=== PATIENT | female | born 1975 | race Caucasian/White ===

== ENCOUNTER 2016-09-26 14:10 | Emergency (ER) | payer MEDICARE, MEDICAID ==
[~2016-09-26 14:10] MED LIST: ABILIFY DISCMEL15 MG PO; ABILIFY MAINTE400 MG IM; ABILIFY15 M1 PO; ABILIFY15 MG; ABILIFY15 MG PO; ABILIFY20 MG; ADDERALL 10 MG10 M1 PO; ADDERALL 20 MG20 M1 PO; ADDERALL 20 MG20 MG PO; ADDERALL 30 MG30 M1 PO; ADDERALL 30 MG30 M2 PO; ADDERALL 30 MG30 MG; ADDERALL 30 MG30 MG PO; ADDERALL PO; ADDERALL XR 3030 M1 PO; ADDERALL XR 3030 MG; ADDERALL XR 3030 MG PO; ALBUTEROL HFA INH; ALBUTEROL SULF8.5 GM; ALBUTEROL SULF8.5 GM IH; ALBUTEROL17 GM INH; AMBIEN CR12.5 MG/BO PO; AMBIEN CR6.25 MG/BO; AMBIEN PO; AMBIEN10 MG PO; AMERGE2.5 MG PO; AMITRIPTYLINE H10 M1 PO; AMITRIPTYLINE H10 MG PO; ATARAX25 MG PO; ATIVAN1 M2 PO; ATIVAN2 MG PO; B COMPLEX1 EACH PO; B-COMPLEX TABL0.4 MG PO; BENTYL20 M1 PO; BENTYL20 MG PO; BENZTROPINE MESY1 M1 PO; BENZTROPINE MESY1 MG PO; BROMELAIN500 MG PO; BROVANA15 MCG/2 M IH; CALCIUM MAGNESI1 TAB PO; CARAFATE1 G PO; CARAFATE1 G2 PO; CELEXA20 MG; CELEXA20 MG PO; CELEXA40 MG PO; CHANTIX1 EACH PO; CHANTIX1 M1 PO; CINNAMON PO; CIPRO500 M2 PO; CLINDAMYCIN HC300 M2 PO; CO Q-10100 M1 PO; COLACE100 M1 PO; COMPAZINE10 M PO; COMPAZINE10 MG PO; COMPAZINE25 M1 RC; CONCERTA36 MG; CONCERTA54 MG; CULTURELLE1 EAC1 PO; CYCLOBENZAPRINE10 M1 PO; CYCLOBENZAPRINE10 MG PO; DARVOCET-N 1001 TAB PO; DEPAKENE250 MG PO; DEPAKENE250 MG/5 M; DEPAKOTE ER250 MG PO; DEPAKOTE ER500 MG; DEPAKOTE ER500 MG PO; DEPAKOTE500 M1 PO; DEPAKOTE500 MG; DEXILANT60 MG PO; DHEA PO; DICYCLOMINE HCL20 MG PO; FISH OIL 1,2001 CAP PO; FLAGYL500 M1 PO; FLAGYL500 MG PO; FLEXERIL10 MG; FLEXERIL10 MG PO; FLONASE16 GM NS; FLOVENT DISKU250 MCG IH; FLOVENT HFA10.6 GM; FLOVENT HFA10.6 GM IH; FLOVENT HFA10.6 GM INH; H; HYDROCODONE/APA1 CAP; HYDROXYZINE HCL25 M1 PO; HYDROXYZINE HCL50 MG; HYDROXYZINE HCL50 MG PO; HYTRIN1 MG; HYTRIN2 MG; HYTRIN5 MG; KETOROLAC PO; KLONOPIN1 MG PO; KLONOPIN2 MG; L-CARNITINE500 M1 PO; LAMICTAL ODT50 MG PO; LAMICTAL XR300 MG PO; LAMICTAL100 MG; LAMICTAL100 MG PO; LAMICTAL200 M1 PO; LAMICTAL200 MG PO; LAMICTAL25 MG; LAMICTAL25 MG PO; LEVAQUIN750 M1 PO; LEVAQUIN750 MG PO; LEXAPRO10 M1 PO; LEXAPRO10 M2 PO; LEXAPRO20 MG; LITHIUM CARBON300 MG; LORTAB 5-325 M1 EAC1 PO; LORTAB 5/500 TA1 TAB PO; LORTAB 5/5001 EA PO; LORTAB 7.5/5001 TAB PO; MAXALT10 MG PO; MECLIZINE HCL25 M3 PO; MECLIZINE HCL25 MG PO; MIGRELIEF CAPL1 EACH PO; MINIPRESS1 MG; MINIPRESS1 MG PO; MINIPRESS2 M1 PO; MOTRIN IB200 M1 PO; MOTRIN600 MG PO; NAPROSYN500 MG PO; NEURONTIN100 MG; NEURONTIN400 MG; NORCO 5-325 TA1 EACH PO; NORCO 5/325 TAB1 TAB PO; NORCO 5/3251 TAB PO; NORCO 7.5/325 T1 TAB PO; NORFLEX100 MG PO; NORFLEX100 MG/TA1 PO; OMEPRAZOLE20 M2 PO; OMEPRAZOLE20 MG PO; OMEPRAZOLE40 M2 PO; OXYCONTIN10 MG; OXYCONTIN10 MG PO; OXYCONTIN40 M1 PO; OXYCONTIN40 MG; OXYCONTIN40 MG PO; OXYCONTIN60 MG PO; PEPTO-BISMOL262 MG PO; PERCOLONE5 MG PO; PHENERGAN25 M1 PO; PHENERGAN25 M4 RC; PHENERGAN25 MG PO; PHILLIPS' COLO1 EACH PO; PRAZOSIN HCL1 M2 PO; PRAZOSIN HCL1 MG PO; PRILOSEC OTC20 MG; PRILOSEC20 MG PO; PROGESTERONE PO; PROMETHAZINE HC25 M3 PO; PROMETHAZINE25 MG PO; PROMETRIUM200 MG PO; PROSOM2 MG PO; PROVENTIL HFA6.7 GM IH; PROVENTIL17 GM; PROVENTIL17 GM IH; REQUIP0.25 M1 PO; REQUIP1 M1 PO; RHINOCORT AQUA8.6 GM; RISPERDAL CONSTA IM; RISPERDAL IM; RISPERDAL1 M1 PO; RISPERDAL12.5 MG/2; RISPERDAL12.5 MG/2 IM; RISPERDAL2 MG PO; RISPERDAL50 MG/2 ML; RISPERIDONE PO; RITALIN20 MG PO; ROXICODONE15 MG; ROZEREM8 MG; SEREVENT D50 MCG/DIS; SEREVENT D50 MCG/DIS IH; SEREVENT INH; SEROQUEL200 MG; SEROQUEL400 MG; SINGULAIR10 MG; SINGULAIR10 MG PO; SONATA10 MG PO; SUPER B COMPLEX PO; TOPAMAX100 MG PO; TORADOL10 MG PO; TRAMADOL HCL50 MG PO; TYLENOL EXTRA500 M1 PO; TYLENOL PM EX-S1 TAB; VALIUM10 MG PO; VALIUM2 M1 PO; VERAPAMIL HCL; VERAPAMIL HCL120 MG; VICODIN 5/500 T1 TAB PO; VIIBRYD10 MG PO; VITAMIN C PO; VITAMIN C500 M1 PO; VITAMIN D50000 UNIT PO; WELLBUTRIN SR100 MG PO; WELLBUTRIN SR200 MG PO; WOBENZYM N PO; XANAX XR2 M1 PO; XANAX XR2 MG; XANAX XR2 MG PO; XANAX XR3 MG PO; XANAX2 MG PO; ZANAFLEX4 M PO; ZANAFLEX4 MG PO; ZANAFLEX6 MG; ZANAFLEX6 MG PO; ZITHROMAX250MG Z-PAK PO; ZOFRAN ODT4 MG/UDTAB PO; ZOFRAN ODT8 MG PO; ZOFRAN ODT8 MG/TAB PO; ZOFRAN4 M1 PO; [UNRECOGNIZED DRUG - OTHER]; [UNRECOGNIZED DRUG - OTHER]; [UNRECOGNIZED DRUG - OTHER] IM; [UNRECOGNIZED DRUG - OTHER] PO; [UNRECOGNIZED DRUG - OTHER] PO; [UNRECOGNIZED DRUG - OTHER] PO
[2016-09-26] MEDS ORDERED: NORCO 10-325 T1 EACH PO (14:16)
[2016-09-26] MEDS ORDERED: PRAZOSIN HCL5 M1 PO ×2 (14:17→14:18)
[2016-09-26] MEDS ORDERED: OMEPRAZOLE40 M2 PO (14:18)
[2016-09-26] MEDS ORDERED: ROPINIROLE HCL1 M1 PO (14:18)
[2016-09-26] MEDS ORDERED: ZANAFLEX4 M2 PO (14:18)
[2016-09-26] MEDS ORDERED: VOLTAREN100 G1 TP (14:19)
[2016-09-26] MEDS ORDERED: VIIBRYD20 M1 PO (14:19)
[2016-09-26] MEDS ORDERED: ALPRAZOLAM2 M3 PO (14:20)
[2016-09-26] MEDS ORDERED: CYCLOBENZAPRINE10 M1 PO (14:21)
[2016-09-26] MEDS ORDERED: TRAZODONE HCL100 M1 PO (14:21)
[2016-09-26] MEDS ORDERED: ADDERALL 30 MG30 M2 PO (15:07)
[2016-12-25] MEDS ORDERED: WELLBUTRIN SR100 M2 PO (19:50)
[2016-12-25] MEDS ORDERED: CYCLOBENZAPRINE5 M1 PO (19:50)
[2016-12-25] MEDS ORDERED: LAMICTAL200 M2 PO (19:50)
[2016-12-25] MEDS ORDERED: POTASSIUM CHLO20 ME3 PO (19:51)
[2016-12-25] MEDS ORDERED: LASIX20 M1 PO (19:51)
[2017-02-26] MEDS ORDERED: NORCO 10-325 T1 EACH PO (12:18)
[2017-02-26] MEDS ORDERED: PROTONIX40 M2 PO (12:19)
[2017-02-26] MEDS ORDERED: ONDANSETRON HCL SL (15:13)
== END 2016-09-26 15:53 ==
LOC: EDMED 14:10
DX: G43.909 Migraine, unspecified, not intractable, without status migrainosus (principal); J45.909 Unspecified asthma, uncomplicated; F31.9 Bipolar disorder, unspecified; E66.9 Obesity, unspecified; R11.2 Nausea with vomiting, unspecified; Z90.49 Acquired absence of other specified parts of digestive tract; Z90.89 Acquired absence of other organs; F17.200 Nicotine dependence, unspecified, uncomplicated; Z79.51 Long term (current) use of inhaled steroids; Z79.899 Other long term (current) drug therapy
CPT/HCPCS: J0780; J1200; J1885; J7030